=== PATIENT | female | born 1955 | race Caucasian/White ===

== ENCOUNTER 2023-02-07 08:07 | Outpatient (CLI) | payer MEDICARE, OTHER ==
[2023-02-07 15:23] LABS: CHOL/HDL RATIO 3.1 (<4.4); CHOLESTEROL 218 mg/dL; HDL CHOLESTEROL 70 mg/dL; LDL CHOLESTEROL,CALCULATED 137 mg/dL; TRIGLYCERIDES 55 mg/dL; VLDL CHOLESTEROL 11 mg/dL
[2023-02-07 20:23] LABS: ESTIMATED AVERAGE GLUCOSE 111 mg/dL (70-100); HEMOGLOBIN A1c% 5.5 % (4.27-6.07)
== END 2023-02-07 08:08 | disposition home or self-care (01) ==
LOC: LAB.S 08:07
PROVIDERS: ATTEND Internal Medicine
DX: Z13.220 Encounter for screening for lipoid disorders (principal); Z13.228 Encounter for screening for other metabolic disorders; E66.9 Obesity, unspecified
CPT/HCPCS: 36415; 80061; 83036; 83721